=== PATIENT | female | born 1940 | race Caucasian/White ===

== ENCOUNTER → 2018-04-17 09:41 | Outpatient (CLI) | payer MEDICARE, OTHER, SELFPAY ==
[2018-04-17 11:15] LABS: BUN Creatinine Ratio 37.5 (6-22); Blood Urea Nitrogen 30 mg/dL (7-17); Carbon Dioxide 27 mmol/L (22-32); Chloride 103 mmol/L (98-107); Estimated Glomerular Filt Rate > 60.0 mL/min (>60); Glucose 82 mg/dL (80-110); HEMOLYSIS < 15 (0-50); Potassium 4.6 mmol/L (3.4-5.1); Sodium 141 mmol/L (137-145)
== END ==
PROVIDERS: PCP Physician Assistant; Visit Provider Internal Medicine Cardiovascular Disease
DX: I10 Essential (primary) hypertension (principal)
CPT/HCPCS: 36415; 80048

== ENCOUNTER → 2018-04-24 13:24 | Outpatient (CLI) | payer MEDICARE, OTHER, SELFPAY ==
--- NOTE | 2018-04-24 | DI.ECHO.S_ITS ---
[facility]---------+ [facility] +---------+ : : [address] : [address] : : : : [id number] : : : : Phone: [phone]---------+ Echocardiogram Report + + :Name: NATAN LINARES Study Date: 04/24/2018 Height: 66 in : :[facility] Weight: 200 lb : : Gender: Female BSA: 2.0 m2 : :: 1940 Age: 77 yrs BP: 148/66 mmHg: :Reason For Study: Aortic valve regurgitation : :Ordering Physician: Hardeep : :Pedro Performed By: Nimco Peres : :Referring: JESSICA Cantu : + + Interpretation Summary The left ventricle is normal in size. The ejection fraction is estimated to be 60-65%. The right ventricle is borderline dilated. The right ventricular systolic function is normal. There is moderate aortic regurgitation. Compared to the prior echo study, there has been an slight increase in the severity of aortic regurgitation. There is mild to moderate tricuspid regurgitation. Compared to the prior echo exam, there has been no change in TR severity. The right ventricular systolic pressure is estimated at 27 mmHg assuming a right atrial pressure of 3 mm Hg. The ascending aorta is moderately enlarged (4.3 cm in diameter. In 12/2013 it was 3.9 cm). Procedure: A two-dimensional transthoracic echocardiogram with color flow and Doppler was performed. The study quality was technically adequate. Comparison is made with the echocardiogram of 12-28-13. The patient was in normal sinus rhythm during the exam. Left Ventricle: The left ventricle is normal in size. Proximal septal thickening is noted. There is no echo evidence for significant left ventricular outflow tract obstruction. There is no thrombus. The ejection fraction is estimated to be 60-65%. There has been no significant change since the previous study. There are no focal wall motion abnormalities. Assessment of diastolic parameters indicates a relaxation abnormality of the left ventricle, consistent with normal filling pressures. Right Ventricle: The right ventricle is borderline dilated. The right ventricular systolic function is normal. Atria: The left atrium is mildly dilated. The left atrium has mildly increased in size since the prior echo exam. Right atrial size is normal. The interatrial septum is intact with no evidence for an atrial septal defect. Mitral Valve: There is mild mitral annular calcification. There is mild mitral regurgitation. Aortic Valve: The aortic valve is trileaflet. The aortic valve is slightly calcified. There is no aortic valve stenosis. There is moderate aortic regurgitation. Compared to the prior echo study, there has been an increase in the severity of aortic regurgitation. Tricuspid Valve: The tricuspid valve leaflets are thin and pliable. There is mild to moderate tricuspid regurgitation. The right ventricular systolic pressure is estimated at 27 mmHg assuming a right atrial pressure of 3 mm Hg. Compared to the prior echo exam, there has been no change in TR severity. Compared to the prior echo exam, there has been no change in the severity of pulmonary hypertension. Pulmonic Valve: The pulmonic valve is not well seen, but is grossly normal. There is trace pulmonic regurgitation. Great Vessels: The aortic root is normal size. The ascending aorta is moderately enlarged. The aortic arch is mildly enlarged. Inspiratory collapse cannot be assessed because of mechanical ventilation, thus CVP cannot be estimated.. Pericardium/ Pleura There is no pericardial effusion. There is no pleural effusion. MMode/2D Measurements & Calculations LVIDd: 5.1 cm Ao root diam: 3.6 cm LVIDs: 3.1 cm Aortic Jxn: 2.8 cm FS: 39.0 % asc Aorta Diam: 4.3 cm IVSd: 1.1 cm Ao Arch Diam (Prox Trans): 3.5 cm LVPWd: 0.85 cm LV ansari. diameter/BSA (cm/m^2): 2.6 LV sys. diameter/BSA (cm/m^2): 1.6 LA dimension: 4.1 cm RA long axis: 4.5 cm LA A2 area: 22.3 cm2 RA area: 13.4 cm2 LA A4 area: 19.5 cm2 RA vol: 34.1 ml LA length (vol): 5.3 cm RA : 17.1 ml/m2 LA vol: 70.2 ml IVC diam: 1.3 cm LA vol index: 35.1 ml/m2 RVDd major: 5.4 cm RVD1 (basal): 3.1 cm RVD2 (mid): 2.8 cm Doppler Measurements & Calculations Ao V2 max: 199.4 cm/sec AI P1/2t: 465.0 msec Ao V2 mean: 120.8 cm/sec AI dec slope: 319.5 cm/sec2 Ao max P.9 mmHg Ao mean P.1 mmHg Ao V2 VTI: 35.5 cm MV E max nikolai: 74.1 cm/sec TR max nikolai: 245.2 cm/sec MV A max nikolai: 116.4 cm/sec TR max P.1 mmHg MV E/A: 0.64 PA V2 max: 112.0 cm/sec Med Peak E' Nikolai: 5.6 cm/sec PA V2 mean: 71.8 cm/sec E/E' med: 13.3 PA mean P.4 mmHg Lat Peak E' Nikolai: 5.1 cm/sec PA Accel Time: 0.13 sec E/E' lat: 14.7 E/e' average: 14.0 MV dec time: 0.28 sec MV P1/2t: 82.3 msec MV P1/2t max nikolai: 73.7 cm/sec MVA(P1/2t): 2.7 cm2 Reading Physician:BOSTON
== END ==
PROVIDERS: Family Provider Physician Assistant; PCP Physician Assistant; Visit Provider Internal Medicine Cardiovascular Disease
DX: I35.1 Nonrheumatic aortic (valve) insufficiency (principal)
CPT/HCPCS: 93306

== ENCOUNTER → 2018-09-26 13:44 | Outpatient (CLI) | payer MEDICARE, OTHER, SELFPAY ==
[2018-09-26 14:22] LABS: Creatine Kinase 20 U/L (30-135)
[2018-09-26 14:34] LABS: Troponin I < 0.012 ng/mL (0.01-0.034)
== END ==
PROVIDERS: Family Provider Physician Assistant; PCP Physician Assistant; Visit Provider Physician Assistant
DX: R07.89 Other chest pain (principal)
CPT/HCPCS: 82550; 84484

== ENCOUNTER → 2019-06-13 12:14 | Outpatient (CLI) | payer MEDICARE, OTHER, SELFPAY ==
--- NOTE | 2019-06-13 | DI.MG.S_ITS ---
BILATERAL DIGITAL SCREENING MAMMOGRAM 3D/2D WITH CAD: 06/13/2019 CLINICAL: Routine screening. Comparison is made to exams dated: 01/05/2018 mammogram, 08/26/2015 mammogram, and 09/05/2014 mammogram - [facility]. The tissue of both breasts is heterogeneously dense. This may lower the sensitivity of mammography. Current study was also evaluated with a Computer Aided Detection (CAD) system. No significant masses, calcifications, or other findings are seen in either breast. There has been no significant interval change. IMPRESSION: NEGATIVE There is no mammographic evidence of malignancy. A 1 year screening mammogram is recommended. This exam was interpreted at Station ID: [id number]. NOTE: For mammograms, a report in lay terms will be sent to the patient. Approximately 15% of breast malignancies will not be visualized mammographically. In the management of a palpable breast mass, a negative mammogram must not discourage biopsy of a clinically suspicious lesion. Electronically Signed By: Bruce morris/bre:06/13/2019 15:23:28 letter sent: Normal Exam ACR BI-RADS Category 1: Negative [id number]
--- NOTE | 2019-06-13 | DI.ECHO.S_ITS ---
[facility]---------+ [facility] +---------+ : : [address] : : : : [id number] : : : : Phone: [phone] : [phone] +---------+ Echocardiogram Report + + :Name: NATAN LINARES Study Date: 06/13/2019 Height: 66 in : :[facility] Exam Location: [facility] Weight: 200 lb : : Gender: Female BSA: 2.0 m2 : :: 1940 Age: 78 yrs BP: 160/86 mmHg: :Reason For Study: AI : : Performed By: Price Palacio : :Referring: AZRA ONEIL : + + Interpretation Summary The left ventricle is normal in size. Left ventricular systolic function is normal without focal wall motion abnormalities. The ejection fraction is estimated to be 60-65%. Diastolic parameters suggest a relaxation abnormality of the left ventricle, consistent with probable normal filling pressures. The right ventricle is normal in size and function. The right ventricular systolic pressure is estimated to be at least 24 mmHg based on an estimated right atrial pressure of 3 mm Hg. Both atria are normal in size. There is mild mitral regurgitation. There is mild to moderate aortic regurgitation. Compared to the prior echo study, there has been a decrease in the severity of aortic regurgitation. There is no other significant valvular heart disease. The ascending aorta is moderately enlarged. This is unchanged compared to the previous study. Mild atherosclerotic plaque(s) in the descending aorta. Procedure: A two-dimensional transthoracic echocardiogram with color flow and Doppler was performed. The study quality was technically adequate. Comparison is made with the echocardiogram of 04/24/18. The patient was in normal sinus rhythm during the exam. Left Ventricle: The left ventricle is normal in size. There is normal left ventricular wall thickness. Left ventricular systolic function is normal without focal wall motion abnormalities. The ejection fraction is estimated to be 60-65%. Diastolic parameters suggest a relaxation abnormality of the left ventricle, consistent with probable normal filling pressures. Right Ventricle: The right ventricle is normal in size and function. Atria: Both atria are normal in size. The interatrial septum is intact with no evidence for an atrial septal defect. Mitral Valve: The mitral valve is normal in structure and function. There is mild mitral regurgitation. Aortic Valve: The aortic valve is trileaflet. The aortic valve opens well. There is mild to moderate aortic regurgitation. Compared to the prior echo study, there has been a decrease in the severity of aortic regurgitation. Tricuspid Valve: The tricuspid valve is normal in structure and function. There is trace tricuspid regurgitation. The right ventricular systolic pressure is estimated to be at least 24 mmHg based on an estimated right atrial pressure of 3 mm Hg. Pulmonic Valve: The pulmonic valve is not well seen, but is grossly normal. There is trace pulmonic regurgitation. There is no other significant valvular heart disease. Great Vessels: The aortic root is normal size. The ascending aorta is moderately enlarged. This is unchanged compared to the previous study. Mild atherosclerotic plaque(s) in the descending aorta. The pulmonary artery is normal size. The IVC is of normal diameter and collapses greater than 50% with a sniff. This suggests a low right atrial pressure of 3 mm Hg. Pericardium/ Pleura There is no pericardial effusion. There is no pleural effusion. MMode/2D Measurements & Calculations LVIDd: 4.8 cm LVOT diam: 2.4 cm LVIDs: 3.5 cm Ao root diam: 3.4 cm FS: 27.0 % Aortic Jxn: 2.6 cm EPSS: 0.74 cm asc Aorta Diam: 4.3 cm IVSd: 1.2 cm Ao Arch Diam (Prox Trans): 2.7 cm LVPWd: 0.94 cm LV ansari. diameter/BSA (cm/m^2): 2.4 LV sys. diameter/BSA (cm/m^2): 1.7 LA dimension: 3.9 cm RA long axis: 4.3 cm LA A2 area: 20.8 cm2 RA area: 13.5 cm2 LA A4 area: 15.5 cm2 RA vol: 36.4 ml LA length (vol): 4.7 cm RA : 18.2 ml/m2 LA vol: 58.5 ml IVC diam: 1.6 cm LA vol index: 29.2 ml/m2 Doppler Measurements & Calculations Ao V2 max: 170.9 cm/sec LVOT Max Nikolai: 133.3 cm/sec Ao V2 mean: 117.5 cm/sec LV V1 max P.1 mmHg Ao max P.7 mmHg LV V1 VTI: 27.5 cm Ao mean P.1 mmHg NELLY(I,D): 4.2 cm2 Ao V2 VTI: 29.3 cm NELLY(V,D): 3.5 cm2 sev ratio: 0.94 NELLY indexed to BSA (cm^2/m^2): 2.1 AI P1/2t: 454.3 msec AI dec slope: 312.9 cm/sec2 MV E max nikolai: 61.6 cm/sec TR max nikolai: 230.4 cm/sec MV A max nikolai: 108.3 cm/sec TR max P.2 mmHg MV E/A: 0.57 PA V2 max: 85.8 cm/sec Med Peak E' Nikolai: 3.1 cm/sec PA V2 mean: 64.7 cm/sec E/E' med: 19.9 PA mean P.8 mmHg Lat Peak E' Nikolai: 2.7 cm/sec PA pr(Accel): 44.1 mmHg E/E' lat: 23.0 PA Accel Time: 0.09 sec E/e' average: 21.4 MV dec time: 0.18 sec SV(LVOT): 123.2 ml Reading Physician:04:53 PM
== END ==
PROVIDERS: PCP Physician Assistant; Visit Provider Physician Assistant
DX: Z12.31 Encounter for screening mammogram for malignant neoplasm of breast (principal); I35.1 Nonrheumatic aortic (valve) insufficiency
CPT/HCPCS: 77063; 77067; 93306

== ENCOUNTER → 2019-06-19 11:12 | Outpatient (CLI) | payer MEDICARE, OTHER, SELFPAY ==
[2019-06-19 12:45] LABS: Alanine Aminotransferase 16 IU/L (9-52); Albumin 4.3 g/dL (3.5-5.0); Albumin Globulin Ratio 1.7 (1.0-2.8); Alkaline Phosphatase 55 U/L (38-126); Aspartate Aminotransferase 19 IU/L (14-36); BUN Creatinine Ratio 34.3 (6-22); Bilirubin Total 0.8 mg/dL (0.2-1.3); Blood Urea Nitrogen 24 mg/dL (7-17); Calcium 10.2 mg/dL (8.4-10.2); Carbon Dioxide 28 mmol/L (22-32); Chloride 101 mmol/L (98-107); Cholesterol 164 mg/dL (140-199); Estimated Glomerular Filt Rate > 60.0 mL/min (>60); Globulin 2.6 g/dL (1.7-4.1); Glucose 100 mg/dL (80-110); HDL Cholesterol 85 mg/dL (40-60); HEMOLYSIS 17 (0-50); LDL Cholesterol Calculated 61 mg/dL (<100); Potassium 4.3 mmol/L (3.4-5.1); Sodium 141 mmol/L (137-145); Total Protein 6.9 g/dL (6.3-8.2); Triglycerides 92 mg/dL (35-150)
[2019-06-19 14:45] LABS: Creatinine Urine Random 162.1 mg/dL
[2019-06-19 14:52] LABS: Microalbumi Creatinin Ratio Ur 8.6 ug/mg CR (<30); Microalbumin Urine Random 1.4 mg/dL (0-1.6)
== END ==
PROVIDERS: PCP Physician Assistant; Visit Provider Physician Assistant
DX: E78.5 Hyperlipidemia, unspecified (principal); I10 Essential (primary) hypertension
CPT/HCPCS: 36415; 80053; 80061; 82043; 82570

== ENCOUNTER → 2020-02-28 13:48 | Outpatient (CLI) | payer MEDICARE, OTHER, SELFPAY ==
--- NOTE | 2020-02-28 | DI.ECHO.S_ITS ---
[facility]---------+ [facility] +---------+ : : [address] : : : : [id number] : : : : Phone: [phone] : : [phone] +---------+ Echocardiogram Report + + :Name: NATAN LINARES Study Date: 02/28/2020 Height: 66 in : :[facility] Weight: 197 lb : : Gender: Female BSA: 2.0 m2 : :: 1940 Age: 79 yrs BP: 130/72 mmHg: :Reason For Study: AORTIC INSUFFICIENCY : :Ordering Physician: Christian : :Vinh Stewart Performed By: June Stallworth : :Referring: CHRISTIAN STEWART : + + Interpretation Summary The left ventricle is normal in size and wall thickness. Left ventricular systolic function is normal without focal wall motion abnormalities. The ejection fraction is estimated to be 55-60%. There has been no significant change since the previous exam. Diastolic parameters suggest a relaxation abnormality of the left ventricle, consistent with probable normal filling pressures. The right ventricle is normal in size and function. The right ventricular systolic pressure is estimated to be at least 23 mmHg based on an estimated right atrial pressure of 3 mm Hg. Both atria are normal in size. There is mild to moderate aortic regurgitation. This is unchanged compared to the previous study. There is no other significant valvular heart disease. The ascending aorta is mildly enlarged. Procedure: A two-dimensional transthoracic echocardiogram with color flow and Doppler was performed. The study quality was technically adequate. Comparison is made with the echocardiogram of 06/13/2019. The patient was in normal sinus rhythm during the exam. Left Ventricle: The left ventricle is normal in size and wall thickness. Left ventricular systolic function is normal without focal wall motion abnormalities. The ejection fraction is estimated to be 55-60%. There has been no significant change since the previous exam. Diastolic parameters suggest a relaxation abnormality of the left ventricle, consistent with probable normal filling pressures. Right Ventricle: The right ventricle is normal in size and function. Atria: Both atria are normal in size. There is no Doppler evidence for an interatrial shunt. Mitral Valve: The mitral valve is normal in structure and function. There is mild mitral regurgitation. Aortic Valve: The aortic valve is trileaflet. There is no aortic valve stenosis. There is mild to moderate aortic regurgitation. This is unchanged compared to the previous study. Tricuspid Valve: The tricuspid valve is normal in structure and function. There is mild tricuspid regurgitation. The right ventricular systolic pressure is estimated to be at least 23 mmHg based on an estimated right atrial pressure of 3 mm Hg. Pulmonic Valve: The pulmonic valve is not well seen, but is grossly normal. There is trace pulmonic regurgitation. There is no other significant valvular heart disease. Great Vessels: The aortic root is normal size. The ascending aorta is mildly enlarged. The IVC is of normal diameter and collapses greater than 50% with a sniff. This suggests a low right atrial pressure of 3 mm Hg. Pericardium/ Pleura There is no pericardial effusion. There is no pleural effusion. MMode/2D Measurements & Calculations LVIDd: 4.5 cm LVOT diam: 2.2 cm LVIDs: 3.2 cm Ao root diam: 3.0 cm FS: 29.0 % asc Aorta Diam: 4.1 cm EPSS: 0.68 cm Ao Arch Diam (Prox Trans): 2.8 cm IVSd: 0.96 cm LVPWd: 1.0 cm LV ansari. diameter/BSA (cm/m^2): 2.3 LV sys. diameter/BSA (cm/m^2): 1.6 LA A2 area: 20.3 cm2 RA long axis: 4.4 cm LA A4 area: 12.3 cm2 RA area: 11.9 cm2 LA length (vol): 4.3 cm RA vol: 27.7 ml LA vol: 49.3 ml RA : 13.9 ml/m2 LA vol index: 24.8 ml/m2 IVC diam: 1.2 cm RVD1 (basal): 3.0 cm TAPSE: 2.0 cm Doppler Measurements & Calculations Ao V2 max: 156.1 cm/sec LVOT Max Nikolai: 148.9 cm/sec Ao V2 mean: 101.8 cm/sec LV V1 max P.9 mmHg Ao max P.7 mmHg LV V1 VTI: 28.6 cm Ao mean P.8 mmHg NELLY(I,D): 3.8 cm2 Ao V2 VTI: 29.2 cm NELLY(V,D): 3.7 cm2 sev ratio: 0.98 NELLY indexed to BSA (cm^2/m^2): 1.9 AI P1/2t: 500.7 msec AI dec slope: 258.6 cm/sec2 MV E max nikolai: 80.2 cm/sec TR max nikolai: 225.5 cm/sec MV A max nikolai: 129.2 cm/sec TR max P.4 mmHg MV E/A: 0.62 PA V2 max: 115.7 cm/sec Med Peak E' Nikolai: 4.0 cm/sec PA V2 mean: 77.0 cm/sec E/E' med: 20.0 PA mean P.7 mmHg Lat Peak E' Nikolai: 7.3 cm/sec E/E' lat: 11.0 E/e' average: 15.5 MV dec time: 0.38 sec SV(LVOT): 110.1 ml Reading Physician:01:14 PM
== END ==
PROVIDERS: PCP Physician Assistant; Referring Provider Internal Medicine Cardiovascular Disease; Visit Provider Internal Medicine Cardiovascular Disease
DX: I08.3 Combined rheumatic disorders of mitral, aortic and tricuspid valves (principal); I77.89 Other specified disorders of arteries and arterioles
CPT/HCPCS: 93306

== ENCOUNTER → 2020-09-29 09:49 | Outpatient (CLI) | payer MEDICARE, OTHER, SELFPAY | PROVIDERS: PCP Registered Nurse Diabetes Educator; Referring Provider Registered Nurse Diabetes Educator; Visit Provider Registered Nurse | DX: M85.851 Other specified disorders of bone density and structure, right thigh (principal); Z78.0 Asymptomatic menopausal state | CPT/HCPCS: 77080 ==

== ENCOUNTER → 2020-12-08 09:07 | Outpatient (CLI) | payer MEDICARE, OTHER, SELFPAY ==
[2020-12-08 10:12] LABS: Alanine Aminotransferase 18 IU/L (<35); Albumin 4.1 g/dL (3.5-5.0); Albumin Globulin Ratio 1.7 (1.0-2.8); Alkaline Phosphatase 45 U/L (38-126); Aspartate Aminotransferase 23 IU/L (14-36); BUN Creatinine Ratio 33.7 (6-22); Bilirubin Total 0.6 mg/dL (0.2-1.3); Blood Urea Nitrogen 29 mg/dL (7-17); Calcium 9.4 mg/dL (8.4-10.2); Carbon Dioxide 30 mmol/L (22-32); Chloride 103 mmol/L (98-107); Cholesterol 139 mg/dL (140-199); Estimated Glomerular Filt Rate > 60.0 mL/min (>60); Globulin 2.4 g/dL (1.7-4.1); Glucose 69 mg/dL (80-110); HDL Cholesterol 71 mg/dL (40-60); HEMOLYSIS < 15 (0-50); LDL Cholesterol Calculated 54 mg/dL (<100); Potassium 3.5 mmol/L (3.4-5.1); Sodium 137 mmol/L (137-145); Total Protein 6.5 g/dL (6.3-8.2); Triglycerides 72 mg/dL (35-150)
== END ==
PROVIDERS: PCP Registered Nurse Diabetes Educator; Referring Provider Registered Nurse; Visit Provider Registered Nurse
DX: E78.5 Hyperlipidemia, unspecified (principal); I10 Essential (primary) hypertension
CPT/HCPCS: 36415; 80053; 80061

== ENCOUNTER → 2020-12-22 09:50 | Outpatient (CLI) | payer MEDICARE, OTHER, SELFPAY ==
--- NOTE | 2020-12-22 09:55 | DI.MG.S_ITS ---
BILATERAL DIGITAL SCREENING MAMMOGRAM 3D/2D WITH CAD: 12/22/2020 CLINICAL: Routine screening. Comparison is made to exams dated: 06/13/2019 mammogram, 01/05/2018 mammogram, and 08/26/2015 mammogram - [facility]. The tissue of both breasts is heterogeneously dense. This may lower the sensitivity of mammography. Current study was also evaluated with a Computer Aided Detection (CAD) system. There is a biopsy clip in the right breast. No significant masses, calcifications, or other findings are seen in either breast. There has been no significant interval change. IMPRESSION: NEGATIVE There is no mammographic evidence of malignancy. A 1 year screening mammogram is recommended. This exam was interpreted at Station ID: [id number]. NOTE: For mammograms, a report in lay terms will be sent to the patient. Approximately 15% of breast malignancies will not be visualized mammographically. In the management of a palpable breast mass, a negative mammogram must not discourage biopsy of a clinically suspicious lesion. Electronically Signed By: Mathew black/bre:12/22/2020 10:25:44 letter sent: Normal Exam ACR BI-RADS Category 1: Negative 3341F
== END ==
PROVIDERS: PCP Registered Nurse Diabetes Educator; Referring Provider Registered Nurse; Visit Provider Registered Nurse
DX: Z12.31 Encounter for screening mammogram for malignant neoplasm of breast (principal)
CPT/HCPCS: 77063; 77067

== ENCOUNTER → 2020-12-29 10:33 | Outpatient (CLI) | payer MEDICARE, OTHER, SELFPAY ==
--- NOTE | 2020-12-29 10:35 | DI.RAD.S_ITS ---
PROCEDURE: XR LUMBAR SPINE MIN 4V INDICATIONS: lower back pain TECHNIQUE: 4 views of the lumbar spine were acquired, including bilateral oblique views. COMPARISON: None. FINDINGS: Bones: L1 vertebral body compression fracture with moderate height loss. Multilevel degenerative endplate sclerosis and spurring. Diffuse facet arthropathy. Diffuse mild to moderate disc space narrowing throughout the lumbar spine. Mild dextrocurvature centered at the L1 level. Degenerative spurring and sclerosis at the sacroiliac joints. Soft tissues: Overlying bowel gas pattern is normal. Large left-sided pelvic calcification. No suspicious soft tissue calcifications. Oblique images: No pars defects. IMPRESSION: Diffuse lumbar spondylosis and facet arthropathy as above Mild dextrocurvature L1 compression fracture, technically age unknown, recommend clinical correlation to point tenderness to determine acuity. Dictated by: Mesfin Aldrich M.D. on 12/29/2020 at 15:50 Approved by: Mesfin Aldrich M.D. on 12/29/2020 at 15:52
== END ==
PROVIDERS: PCP Registered Nurse; Referring Provider Registered Nurse; Visit Provider Registered Nurse
DX: M54.5 Low back pain (principal); M47.816 Spondylosis without myelopathy or radiculopathy, lumbar region; M48.56XA Collapsed vertebra, not elsewhere classified, lumbar region, initial encounter for fracture
CPT/HCPCS: 72110

== ENCOUNTER 2021-01-21 18:26 | Emergency (ER) | payer MEDICARE, OTHER, SELFPAY ==
[2021-01-21 18:30] VITALS: BP 171/79; PULSE 64; RESP 15; TEMP 36.1; O2SAT 99; BMI 27.2
--- NOTE | 2021-01-21 18:35 | DI.RAD.S_ITS ---
PROCEDURE: XR SHOULDER RT MIN 2V INDICATIONS: fall with right shoulder pain TECHNIQUE: To views of the shoulder were acquired. COMPARISON: None. FINDINGS: Bones: Displaced right humeral neck fracture. Soft tissues: No suspicious soft tissue calcifications. IMPRESSION: Proximal right humerus fracture. Dictated by: Jade Irving MD, PhD on 01/21/2021 at 19:03 Approved by: Jade Irving MD, PhD on 01/21/2021 at 19:04
--- NOTE | 2021-01-21 20:06 | ED.UPPEXIN ---
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 She said that behind her recliner is were she keeps her walker she got up to get her walker she reached with her left hand to turn off the light when she fell landing on her right shoulder. She did not hit her head or lose consciousness she is not on anti-platelet or anticoagulation medication. She denies any new numbness tingling or weakness. He has obvious right shoulder pain. EMS apparently was called to the house and she was placed in a sling and brought by POV. MD complaint: injury to: right and shoulder Onset (ago): hour(s) Related Data Home Medications Medication Instructions Recorded Confirmed FOLIC ACID/VIT A/VIT B1/VIT 1 tab PO Q DAY #0 04/14/11 12/29/20 (#MULTIVITAMIN) [CO-Q-10] 1 cap PO QDAY #0 03/01/13 12/29/20 [GLUCOSAMINE/CHONDROI] 1 cap PO QDAY #0 03/01/13 12/29/20 [FISH OIL] 1 cap PO QDAY #0 01/24/17 12/29/20 [MAGNESIUM] 1 tab PO QDAY #0 01/24/17 12/29/20 Potassium See Rx Instructions .ROUTE .COMPLEX 06/06/18 12/29/20 Respironics Dreamstation CPAP #1 ea 05/29/19 12/29/20 advancin PO 06/09/20 12/29/20 ascorbic acid (vitamin C) 1,000 mg 1 gram PO DAILY tab 06/09/20 12/29/20 tablet cholecalciferol (vitamin D3) 50 50 mcg PO DAILY 06/09/20 12/29/20 mcg (2,000 unit) capsule niacin 500 mg capsule,extended 500 mg PO DAILY 06/09/20 12/29/20 release tumeric PO 06/09/20 12/29/20 Previous Rx's Medication Instructions Recorded Disabled Parking Placard #1 ea 02/07/19 atorvastatin 40 mg tablet 40 mg PO HS #90 tab 03/21/20 famotidine 20 mg tablet 20 mg PO BID PRN #180 tab 06/09/20 hydrochlorothiazide 25 mg tablet 25 mg PO QDAY #90 tab 06/09/20 verapamil 80 mg tablet 160 mg PO BID #360 tab 06/09/20 sulindac 200 mg tablet See Rx Instructions .ROUTE 12/19/20 .COMPLEX #180 tablet hydrocodone-acetaminophen 1 tab PO Q6H PRN #10 tab 01/21/21 Allergies Allergy/AdvReac Type Severity Reaction Status Date / Time No Known Drug Allergies Allergy Verified 01/21/21 18:32 Review of Systems Review of Systems ROS Unobtainable: All systems reviewed & are unremarkable except as noted in HPI and below Constitutional Constitutional: Denies fatigue, Denies fever(s), Denies frequent falls and Denies headache(s) ENT Ears, Nose, Mouth, and Throat: Denies dizziness and Denies headache(s) Cardiovascular Cardiovascular: Denies chest pain, Denies syncope, Denies irregular heart rhythm, Denies lightheadedness, Denies palpitations, Denies dyspnea and Denies dyspnea on exertion Respiratory Respiratory: Denies cough, Denies dyspnea, Denies dyspnea on exertion and Denies wheezing Gastrointestinal Gastrointestinal: Denies abdominal pain, Denies nausea and Denies vomiting Musculoskeletal Musculoskeletal: Reports as per HPI Integumentary/Breasts Skin/Breast: Denies pruritus, Denies erythema, Denies rash and Denies wounds Neurologic Neurologic: Denies dizziness, Denies syncope, Denies frequent falls and Denies headache(s) Endocrine Endocrine: Denies fatigue and Denies palpitations Allergic/Immunologic Allergic/Immunologic: Denies wheezing Patient History Medical History (Updated 01/21/21 @ 20:29 by Vi Cevallos DO) Aortic regurgitation Brain bleed (~2001) Hyperlipemia Hypertension Rheumatic fever Sleep apnea Stroke Surgical History History of carpal tunnel repair History of tonsillectomy Hx of brain surgery (~2002) Status post breast biopsy Family History Father No problems noted. Mother No problems noted. Grandmother No problems noted. Grandfather No problems noted. Social History Smoking Status: Never smoker second hand exposure: No alcohol intake: current substance use type: does not use Smoking Status: Never smoker alcohol intake frequency: holidays/special occasions only Substance Use Type: does not use Exam Initial Vital Signs Initial Vital Signs: Vital Signs Temperature 97.0 F L 01/21/21 18:30 Pulse Rate 64 01/21/21 18:30 Respiratory Rate 15 01/21/21 18:30 Blood Pressure 171/79 H 01/21/21 18:30 Pulse Oximetry 99 01/21/21 18:30 GENERAL: Alert very pleasant 80-year-old female and in no acute distress. HEENT: Head atraumatic, no depression or crepitation EOMI, pupils reactive, face symmetric, neck is supple no vertebral tenderness or step-offs CARDIOVASCULAR: Regular rate and rhythm without murmurs, rubs or gallops. RESPIRATORY: Breath sounds equal bilaterally, no wheezes rales or rhonchi. ABDOMEN: Soft, nontender. Normoactive bowel sounds all 4 quadrants. No guarding or rebound. EXTREMITIES: Normal range of motion, no clubbing or edema. Neurovascularly intact. Right shoulder pain sensation over deltoid intact distal radial pulse intact NEUROLOGICAL: Alert and oriented x4.Normal gait and speech. SKIN: Warm, dry, no laceration, no petechiae, no rashes or lesions. Course Orders Ordered: ED Orders 01/21/21 18:35 XR shoulder RT min 2V Stat Discontinued Medications Hydrocodone Bitart/Acetaminophen (Hydrocodone/Acet 5/325 Tablet) 1 tab PO NOW ONE Stop: 01/21/21 20:21 Last Admin: 01/21/21 20:23 Dose: 1 tab Documented by: SAMMI Hydrocodone Bitart/Acetaminophen (Hydrocodone/Acet 5/325 Prepack) 1 bottle MISC SEEINSTR ONE Stop: 01/21/21 20:33 Last Admin: 01/21/21 20:42 Dose: 1 bottle Documented by: SAMMI Vital Signs Vital signs: Vital Signs - 8 hr 01/21/21 18:30 01/21/21 21:15 Temperature 97.0 F L Pulse Rate 64 71 Respiratory Rate 15 22 Blood Pressure 171/79 H 175/84 H Pulse Oximetry 99 96 MDM - Extremity Injury (Upper) Imaging Data Extremity x-ray #1: Radiologist's Impression: PROCEDURE: XR SHOULDER RT MIN 2V INDICATIONS: fall with right shoulder pain TECHNIQUE: To views of the shoulder were acquired. COMPARISON: None. FINDINGS: Bones: Displaced right humeral neck fracture. Soft tissues: No suspicious soft tissue calcifications. IMPRESSION: Proximal right humerus fracture. Dictated by: Jade Irving MD, PhD on 01/21/2021 at 19:03 MDM Narrative Medical decision making narrative: At this time patient has fairly good memory of what happened. No head injury. She has obvious right humeral fracture she is placed in a sling. Discharge Plan Departure Patient Disposition: Home Clinical Impression: Closed right humeral fracture Qualifiers: Encounter type: initial encounter Humerus Location: proximal Fracture alignment: displaced Instructions: DI for Shoulder Fracture Activity Restrictions/Additional Instructions: *You have been diagnosed with right shoulder fracture *What to do: Wear sling on right arm at all times including to sleep and possibly to shower as well. (to slings may be useful so that when 1 is wet you can put on a dry one) *Continue to take medications as directed--> SENT TO [facility] Tylenol 650 mg every 4-6 hours if needed for [id number] pain-recommend trying to take this during the daytime [place] 0.5-1 tablet every 6 hours if needed for moderate to severe pain-try to take this at night while sleeping however you may need some of this over the next couple of days during the daytime *Follow up with your primary care provider in 2-3 days Call orthopedics tomorrow to schedule follow-up appointment to ensure proper healing *Return to ER if you should have increasing pain, weakness or any new, worsening or concerning symptoms CONTROLLED SUBSTANCE DISCHARGE (Narcotoic/benzodiazepine/Flexeril/Phenergan) 1. You have been prescribed narcotic medications, it does have acetaminophen/Tylenol/paracetamol in it, DO NOT TAKE MORE THAN 4,00mg in 24 hours of Tylenol. TRAMADOL DOES NOT CONTAIN TYLENOL 2. Please understand that we cannot provide further refills of narcotics, benzodiazepines or controlled substances through the ED and her pain management will need to be through your provider. 3. While on these medications you cannot drive or operate heavy machinery. 4. You cannot sign legal documents or perform any duties such as this. 5. As long as you're taking opiate pain medications he should also be taking a stool softener such as Colace, Dulcolax, MiraLAX or prune juice, to help avoid constipation. Prescriptions: New hydrocodone-acetaminophen 5-325 mg tablet 1 tab PO Q6H PRN (Reason: pain) Qty: 10 RF: 0 No Action Potassium See Rx Instructions .ROUTE .COMPLEX RF: 0 FOLIC ACID/VIT A/VIT B1/VIT (#MULTIVITAMIN) 1 tab PO Q DAY Qty: 0 RF: 0 [CO-Q-10] 1 cap PO QDAY Qty: 0 RF: 0 [GLUCOSAMINE/CHONDROI] 1 cap PO QDAY Qty: 0 RF: 0 [MAGNESIUM] 1 tab PO QDAY Qty: 0 RF: 0 [FISH OIL] 1 cap PO QDAY Qty: 0 RF: 0 (DME) Disabled Parking Placard Qty: 1 RF: 0 (DME) Respironics Dreamstation CPAP Qty: 1 RF: 0 atorvastatin 40 mg tablet 40 mg PO HS Qty: 90 RF: 3 sulindac 200 mg tablet See Rx Instructions .ROUTE .COMPLEX Qty: 180 RF: 1 tumeric 1,000 mg PO RF: 0 advancin PO RF: 0 cholecalciferol (vitamin D3) [Vitamin D3] 50 mcg (2,000 unit) capsule 50 mcg PO DAILY RF: 0 niacin 500 mg capsule, extended release 500 mg PO DAILY RF: 0 ascorbic acid (vitamin C) 1,000 mg tablet 1 gram PO DAILY RF: 0 hydrochlorothiazide 25 mg tablet 25 mg PO QDAY Qty: 90 RF: 3 verapamil 80 mg tablet 160 mg PO BID Qty: 360 RF: 3 famotidine 20 mg tablet 20 mg PO BID PRN (Reason: reflux) Qty: 180 RF: 3 Referrals: [facility] [Provider Group] Joselyn Watkins ARNP [Primary Care Provider] -
[2021-01-21] MEDS: HYDROCODONE/ACET 5/325 TABLET 1 TAB PO (20:23)
[2021-01-21] MEDS: HYDROCODONE/ACET 5/325 PREPACK 1 BOTTLE MISC (20:42)
[2021-01-21 21:15] VITALS: BP 175/84; PULSE 71; RESP 22; O2SAT 96
== END 2021-01-21 21:10 | disposition home or self-care (01) ==
PROVIDERS: Emergency Provider Emergency Medicine; PCP Registered Nurse
DX: S42.291A Other displaced fracture of upper end of right humerus, initial encounter for closed fracture (principal); W18.30XA Fall on same level, unspecified, initial encounter
CPT/HCPCS: 73030; 99283

== ENCOUNTER → 2021-01-26 14:33 | Outpatient (CLI) | payer MEDICARE, OTHER, SELFPAY ==
--- NOTE | 2021-01-26 | DI.CT.S_ITS ---
PROCEDURE: CT UE RT WO CON INDICATIONS: Unspecified fracture of upper end of right humerus TECHNIQUE: Noncontrast 1-1.5 mm thick sections acquired from the acromioclavicular joint to the inferior scapula, with coronal and sagittal reformatting. COMPARISON: None. FINDINGS: Image quality: Excellent. Bones: Comminuted and impacted fracture involving surgical neck of proximal humerus is seen with anterior and superior migration of proximal humeral shaft in relation to humeral head with up to 1.5 centimeter overlapping at fracture site. Fracture line is seen extending to involve both greater and lesser tuberosities with medially displaced lesser tuberosity fragments and posterior laterally displaced greater tuberosity fragments. Minimally displaced distal clavicular shaft fracture approximately 1.3 centimeters from acromioclavicular joint is also seen with up to 4 millimeter superior displacement of distal clavicular head at fracture site and up to 4 millimeter overlapping. Acromioclavicular joint and glenohumeral joint osteoarthritic changes are seen. No acute scapular fracture. Visualized right upper ribs are grossly intact. Soft tissues: There is no gross full-thickness rotator cuff tendon rupture. Moderate to large amount of glenohumeral joint effusion is seen suggestive of hemarthrosis. Mild to moderate supraspinatus muscle atrophy is seen on sagittal view. No abnormal soft tissue calcifications. IMPRESSION: 1. Finding is consistent with comminuted 4 part fracture of proximal humerus as described above. No dislocation. 2. Minimally displaced and overlapping right distal clavicular shaft fracture as above. Acromioclavicular joint and glenohumeral joint osteoarthritis. 3. Moderate to large hemarthrosis. No abnormal soft tissue calcifications. No gross full-thickness rotator cuff tendon rupture. Dictated by: Steve Mcmillan M.D. on 01/26/2021 at 17:29 Approved by: Steve Mcmillan M.D. on 01/26/2021 at 18:05
== END ==
PROVIDERS: PCP Registered Nurse; Referring Provider Orthopaedic Surgery; Visit Provider Orthopaedic Surgery
DX: S42.241A 4-part fracture of surgical neck of right humerus, initial encounter for closed fracture (principal); S42.021A Displaced fracture of shaft of right clavicle, initial encounter for closed fracture; M19.011 Primary osteoarthritis, right shoulder; M25.011 Hemarthrosis, right shoulder; X58.XXXA Exposure to other specified factors, initial encounter
CPT/HCPCS: 73200

== ENCOUNTER → 2021-05-18 09:25 | Outpatient (CLI) | payer MEDICARE, OTHER, SELFPAY ==
[2021-05-18 11:30] LABS: Alanine Aminotransferase 11 IU/L (<35); Albumin 4.2 g/dL (3.5-5.0); Albumin Globulin Ratio 1.6 (1.0-2.8); Alkaline Phosphatase 58 U/L (38-126); Aspartate Aminotransferase 21 IU/L (14-36); BUN Creatinine Ratio 29.5 (6-22); Bilirubin Total 0.5 mg/dL (0.2-1.3); Blood Urea Nitrogen 23 mg/dL (7-17); Calcium 9.6 mg/dL (8.4-10.2); Carbon Dioxide 28 mmol/L (22-32); Chloride 103 mmol/L (98-107); Estimated Glomerular Filt Rate > 60.0 mL/min (>60); Globulin 2.7 g/dL (1.7-4.1); Glucose 93 mg/dL (80-110); HEMOLYSIS < 15 (0-50); Sodium 137 mmol/L (137-145); Total Protein 6.9 g/dL (6.3-8.2)
[2021-05-18 14:00] LABS: Cholesterol 157 mg/dL (140-199); HDL Cholesterol 80 mg/dL (40-60); LDL Cholesterol Calculated 53 mg/dL (<100); Triglycerides 118 mg/dL (35-150)
== END ==
PROVIDERS: PCP Registered Nurse; Referring Provider Nurse Practitioner; Visit Provider Nurse Practitioner
DX: I10 Essential (primary) hypertension (principal); E78.5 Hyperlipidemia, unspecified
CPT/HCPCS: 36415; 80053; 80061

== ENCOUNTER → 2021-07-22 12:43 | Outpatient (CLI) | payer MEDICARE, OTHER, SELFPAY ==
--- NOTE | 2021-07-22 | DI.MRI.S_ITS ---
PROCEDURE: MR HEAD/BRAIN WO/W CON INDICATIONS: Dysarthria and anarthria TECHNIQUE: Noncontrast axial T1 spin echo, axial T2 fast spin echo, sagittal and axial FLAIR, coronal T2 fast spin echo, axial gradient echo, axial diffusion and ADC through the brain. After the administration of contrast, axial and coronal 3D VIBE or T1 spin echo with fat saturation through the brain. COMPARISON: None. FINDINGS: There is no restricted diffusion to indicate recent ischemia. The major intracranial vascular flow-related signal voids are maintained. There is attenuation of the flow voids in the right cerebellar hemisphere, likely due to vessel atrophy as a function of a large right cerebellar hemispheric infarct which is now represented by encephalomalacia of most of the right cerebellar hemisphere along with gliotic changes. Moderate global cerebral volume loss with advanced severe chronic microvascular ischemic changes. No abnormal intracranial enhancement or susceptibility. Partially empty sella. No gross orbital abnormality. Paranasal sinuses and mastoid air cells are predominantly clear. IMPRESSION: No acute intracranial abnormality. 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 Advanced global cerebral volume loss and chronic microvascular ischemic changes. Dictated by: Adrian Liu M.D. on 07/22/2021 at 14:06 Approved by: Adrian Liu M.D. on 07/22/2021 at 14:10
== END ==
PROVIDERS: PCP Registered Nurse; Referring Provider Internal Medicine; Visit Provider Internal Medicine
DX: R47.1 Dysarthria and anarthria (principal); I63.9 Cerebral infarction, unspecified; G93.89 Other specified disorders of brain; E86.9 Volume depletion, unspecified
CPT/HCPCS: 70553; A9579

== ENCOUNTER → 2021-07-31 12:39 | Outpatient (CLI) | payer MEDICARE, OTHER, SELFPAY ==
[2021-07-31 14:08] LABS: Alanine Aminotransferase 14 IU/L (<35); Albumin 4.5 g/dL (3.5-5.0); Alkaline Phosphatase 54 U/L (38-126); Aspartate Aminotransferase 21 IU/L (14-36); BUN Creatinine Ratio 29.2 (6-22); Bilirubin Total 0.5 mg/dL (0.2-1.3); Blood Urea Nitrogen 21 mg/dL (7-17); Calcium 9.7 mg/dL (8.4-10.2); Carbon Dioxide 28 mmol/L (22-32); Chloride 97 mmol/L (98-107); Cholesterol 173 mg/dL (140-199); Estimated Glomerular Filt Rate > 60.0 mL/min (>60); Globulin 2.2 g/dL (1.7-4.1); Glucose 104 mg/dL (80-110); HDL Cholesterol 91 mg/dL (40-60); HEMOLYSIS < 15 (0-50); LDL Cholesterol Calculated 62 mg/dL (<100); Potassium 3.8 mmol/L (3.4-5.1); Sodium 136 mmol/L (137-145); Total Protein 6.7 g/dL (6.3-8.2); Triglycerides 100 mg/dL (35-150)
== END ==
PROVIDERS: PCP Internal Medicine; Referring Provider Internal Medicine; Visit Provider Internal Medicine
DX: E78.5 Hyperlipidemia, unspecified (principal)
CPT/HCPCS: 36415; 80053; 80061

== ENCOUNTER → 2022-03-01 09:37 | Outpatient (CLI) | payer MEDICARE, OTHER, SELFPAY ==
--- NOTE | 2022-03-01 | DI.MG.S_ITS ---
BILATERAL DIGITAL SCREENING MAMMOGRAM 3D/2D WITH CAD: 03/01/2022 CLINICAL: Routine screening. Comparison is made to exams dated: 12/22/2020 mammogram, 06/13/2019 mammogram, and 01/05/2018 mammogram - [facility]. The tissue of both breasts is heterogeneously dense. This may lower the sensitivity of mammography. Current study was also evaluated with a Computer Aided Detection (CAD) system. There is a biopsy clip in the right breast. No significant masses, calcifications, or other findings are seen in either breast. There has been no significant interval change. IMPRESSION: NEGATIVE There is no mammographic evidence of malignancy. A 1 year screening mammogram is recommended. This exam was interpreted at Station ID: [id number]. NOTE: For mammograms, a report in lay terms will be sent to the patient. Approximately 15% of breast malignancies will not be visualized mammographically. In the management of a palpable breast mass, a negative mammogram must not discourage biopsy of a clinically suspicious lesion. Electronically Signed By: Mathew black/bre:03/01/2022 12:23:00 letter sent: Normal Exam ACR BI-RADS Category 1: Negative [id number]
== END ==
PROVIDERS: PCP Internal Medicine; Referring Provider Internal Medicine; Visit Provider Internal Medicine
DX: Z12.31 Encounter for screening mammogram for malignant neoplasm of breast (principal)
CPT/HCPCS: 77063; 77067

== ENCOUNTER → 2023-06-02 13:39 | Outpatient (CLI) | payer MEDICARE, OTHER, SELFPAY ==
--- NOTE | 2023-06-02 | DI.ECHO.S_ITS ---
[facility]---------[facility] +---------+ : : [address] : : : : [id number] : : : : Phone: [phone]+ Echocardiogram Report + + :Name: NATAN LINARES Study Date: 06/02/2023 Height: 65 in : :[facility] ReadingLocation: Weight: 164 lb : : Gender: Female BSA: 1.8 m2 : :: 1940 Age: 82 yrs BP: 154/85 mmHg: :Reason For Study: Nonrheumatic Aortic Valve Insufficiency : :Ordering Physician: PAT, : :CHRISTIAN Performed By: Amina Jefferson : :Referring: CHRISTIAN STEWART : + + Interpretation Summary BP after exam was 128/75 The left ventricle is normal in size. Normal LV systolic function. The ejection fraction is estimated to be 60-65%. Previous LVEF 55 to 60%. The right ventricle is grossly normal size. The right ventricle is hyperdynamic. There is mild to moderate aortic regurgitation. Compared to the prior echo study, there has been no change in the severity of aortic regurgitation. There is aortic root sclerosis/calcification. The IVC is of normal diameter and collapses greater than 50% with a sniff. This suggests a low right atrial pressure of 3 mm Hg. Mildly enlarged ascending aorta. 4.0 cm in diameter. Previously 4.1 cm. Procedure: A two-dimensional transthoracic echocardiogram with color flow and Doppler was performed. The study quality was technically adequate. Comparison is made with the echocardiogram of 02/28/2020. The patient was in normal sinus rhythm during the exam. Left Ventricle: The left ventricle is normal in size. Proximal septal thickening is noted. There is no echo evidence for significant left ventricular outflow tract obstruction. There is no thrombus. The ejection fraction is estimated to be 60-65%. There are no focal wall motion abnormalities. Diastolic parameters suggest a relaxation abnormality of the left ventricle, consistent with probable normal filling pressures. Right Ventricle: The right ventricle is grossly normal size. The right ventricle is hyperdynamic. Atria: The left atrial size is normal. There has been no significant change since the previous study. Right atrial size is normal. There is no Doppler evidence for an interatrial shunt. Mitral Valve: The mitral valve leaflets are slightly calcified. There is no mitral valve stenosis. There is mild mitral regurgitation. Aortic Valve: The aortic valve is trileaflet. There is mild aortic valve sclerosis. There is no aortic valve stenosis. There is mild to moderate aortic regurgitation. Compared to the prior echo study, there has been no change in the severity of aortic regurgitation. Tricuspid Valve: The tricuspid valve is normal. There is no tricuspid stenosis. There is trace tricuspid regurgitation. The right ventricular systolic pressure is estimated to be at least 24 mmHg based on an estimated right atrial pressure of 3 mm Hg. Pulmonic Valve: The pulmonic valve leaflets are thin and pliable; valve motion is normal. There is no pulmonic valvular stenosis. There is trace pulmonic regurgitation. Great Vessels: The aortic root is normal size. There is aortic root sclerosis/calcification. The ascending aorta is mildly enlarged. There has been no significant change since the previous study. The pulmonary artery is normal size. The IVC is of normal diameter and collapses greater than 50% with a sniff. This suggests a low right atrial pressure of 3 mm Hg. Pericardium/ Pleura There is no pericardial effusion. There is no pleural effusion. MMode/2D Measurements & Calculations LVIDd: 3.9 cm LVOT diam: 2.0 cm LVIDs: 2.9 cm Ao root diam: 3.2 cm FS: 25.6 % asc Aorta Diam: 4.0 cm EPSS: 0.60 cm IVSd: 1.5 cm LVPWd: 0.90 cm LV ansari. diameter/BSA (cm/m^2): 2.1 LV sys. diameter/BSA (cm/m^2): 1.6 LA A2 area: 15.6 cm2 RA long axis: 4.5 cm LA A4 area: 9.0 cm2 RA area: 11.7 cm2 LA length (vol): 5.3 cm RA vol: 25.7 ml LA vol: 22.3 ml RA : 14.1 ml/m2 LA vol index: 12.2 ml/m2 RVD1 (basal): 3.5 cm LVLs ap4: 6.0 cm LVLd ap2: 7.0 cm TAPSE_phl: 2.2 cm LVLs ap2: 5.4 cm Doppler Measurements & Calculations Ao V2 max: 156.5 cm/sec LVOT Max Nikolai: 152.7 cm/sec Ao V2 mean: 107.0 cm/sec LV V1 max P.3 mmHg Ao max P.0 mmHg LV V1 VTI: 26.4 cm Ao mean P.3 mmHg NELLY(I,D): 2.8 cm2 Ao V2 VTI: 29.6 cm NELLY(V,D): 3.1 cm2 sev ratio: 0.89 NELLY indexed to BSA (cm^2/m^2): 1.5 MV E max nikolai: 69.0 cm/sec TR max nikolai: 228.0 cm/sec MV A max nikolai: 110.0 cm/sec TR max P.8 mmHg MV E/A: 0.63 PA V2 max: 131.0 cm/sec MV dec time: 0.26 sec PA V2 mean: 90.3 cm/sec PA mean P.0 mmHg PA pr(Accel): 36.3 mmHg SV(LVOT): 82.9 ml AV VR_phl: 0.97 NELLY(VTI)/BSA_phl: 1.5 Reading Physician:05:38 PM
== END ==
PROVIDERS: Referring Provider Internal Medicine Cardiovascular Disease; Visit Provider Internal Medicine Cardiovascular Disease
DX: I08.0 Rheumatic disorders of both mitral and aortic valves (principal); I77.810 Thoracic aortic ectasia; I77.89 Other specified disorders of arteries and arterioles
CPT/HCPCS: 93306

== ENCOUNTER 2024-05-17 10:35 | Emergency (ER) | payer MEDICARE, OTHER, SELFPAY ==
[2024-05-17] VITALS (11 sets, daily range): BP systolic 140–188; BP diastolic 64–100; PULSE 60–81; RESP 13–35; TEMP 36.6; O2SAT 94–97; BMI 26.6
--- NOTE | 2024-05-17 11:02 | DI.RAD.S_ITS ---
PROCEDURE: XR CHEST 1V INDICATIONS: chest pain TECHNIQUE: One view of the chest was acquired. COMPARISON: [facility], CR, XR SHOULDER 2+ VIEWS RIGHT, 03/16/2023, 9:12. [facility], CR, CHEST 1 VIEW, 06/13/2015, 13:37. FINDINGS: Surgical changes and devices: None. Lungs and pleura: Lungs are clear. No pleural effusions or pneumothorax. Mediastinum: Mediastinal contours appear normal. Heart size is enlarged. Bones and chest wall: No suspicious bony lesions. Overlying soft tissues appear unremarkable. Old humeral head/neck fracture on the right. IMPRESSION: No acute pulmonary process. Dictated by: Jackie William M.D. on 05/17/2024 at 11:52 Approved by: Jackie William M.D. on 05/17/2024 at 11:53
[2024-05-17 11:09] LABS: Add Manual Diff / Slide Review NO; Basophils Absolute Auto 0 /uL (0-100); Basophils Percent Auto 0.7 % (0-2); Eosinophils Absolute Auto 100 /uL (0-450); Eosinophils Percent Auto 1.7 % (2-4); Hematocrit 38.6 % (36-46); Hemoglobin 12.9 g/dL (12.0-16.0); Lymphocytes Absolute Auto 2100 /uL (1100-4500); Mean Corpuscular HGB Conc 33.3 % (30-36); Mean Corpuscular Hemoglobin 31.4 PG (26-34); Mean Corpuscular Volume 94.2 fL (80-100); Monocytes Absolute Auto 400 /uL (0-900); Monocytes Percent Auto 5.8 % (3-14); Neutrophils Absolute Auto 4300 /uL (1500-7000); Neutrophils Percent Auto 61.8 % (50-75); Platelet Count 242 X10^3/uL (150-400); Prothrombin Time 11.6 SECONDS (9.4-12.5); Red Cell Distribution Width 13.9 % (11.6-14.8); White Blood Cell Count 6.9 X10^3/uL (4.5-11.0)
--- NOTE | 2024-05-17 11:11 | EKG_ITS ---
[address] [address] Test Date: 2024-05-17 Pat Name: Macrina Haney Department: Room: Gender: Female Gambling Dealer: JACINTO : 1940 Requested By: Order Number: [id number] Reading MD: Beltran Emery Measurements Intervals [place] Rate: 65 P: 16 MN: 216 QRS: -47 QRSD: 90 T: 16 QT: 396 QTc: 411 Interpretive Statements Sinus rhythm with 1st degree AV block Left anterior fascicular block Moderate voltage criteria for LVH, may be normal variant ( R in aVL , [place] product ) Electronically Signed On 05-19-2024 18:25:49 PDT by Beltran Emery
[2024-05-17 11:12] LABS: PTT Partial Thromboplastin Tim 33 SECONDS (25.1-36.5)
[2024-05-17] MEDS: ASPIRIN 81 MG CHEW TAB 324 MG PO (11:19)
[2024-05-17 11:21] LABS: Alanine Aminotransferase 17 IU/L (<35); Albumin 4.3 g/dL (3.5-5.0); Albumin Globulin Ratio 1.8 (1.0-2.8); Alkaline Phosphatase 54 U/L (38-126); Aspartate Aminotransferase 23 IU/L (14-36); BUN Creatinine Ratio 23.5 (6-22); Bilirubin Total 0.5 mg/dL (0.2-1.3); Blood Urea Nitrogen 16 mg/dL (7-17); Calcium 9.8 mg/dL (8.4-10.2); Carbon Dioxide 28 mmol/L (22-32); Chloride 104 mmol/L (98-107); Creatine Kinase 39 U/L (30-135); Estimated Glomerular Filt Rate > 60 mL/min (>60); Globulin 2.4 g/dL (1.7-4.1); Glucose 95 mg/dL (80-110); HEMOLYSIS 16 (0-50); Lipase 59 U/L (23-300); Magnesium 2.1 mg/dL (1.6-2.3); Potassium 3.9 mmol/L (3.4-5.1); Sodium 138 mmol/L (137-145); Total Protein 6.7 g/dL (6.3-8.2)
[2024-05-17 11:32] LABS: NT-proBNP (BNP-Adult 18+) 350 pg/mL (<450); Troponin I < 0.012 ng/mL (0.01-0.034)
--- NOTE | 2024-05-17 11:35 | PC.NURSE ---
Pt states she was at the gym this morning around 1000 which she does multiple times a week. Started having substernal CP without radiation which stopped when she rested. Also states that she has been having palpitations for weeks around 1500 daily while resting. Cannot see Paliwal until Jun. H/o AVM 20 years ago with speech memory and R arm deficits. Given 324mg ASA at triage. Denies NVD, GI upset, Urinary issues, SOB while having pain and denies pain at this time.
--- NOTE | 2024-05-17 11:55 | ED_ITS ---
HPI - Chest Pain General Chief Complaint: Chest Pain Stated Complaint: heart issues Time Seen by Provider: 05/17/24 11:55 Source: patient, RN notes reviewed and old records reviewed Mode of arrival: Ambulatory Limitations: no limitations History of Present Illness HPI narrative: 80-year-old female with history of AVM, dyslipidemia, hypertension, GIOVANNI, aortic valve regurgitation after medic fever as a child who presents with complaint of chest pain after being on the recumbent bicycle l at a local gym. Patient states that she she had symptoms resolve after 1-2 minutes. She states it occurred again when she was using her walker to walk. It did not occur since then she has been able to ambulate to the bathroom in the department and states it is resolved. She has not had similar symptoms in the past. Describes as sort of left-sided lower chest, no radiation, no shortness of breath no diaphoresis no nausea or vomiting no lightheadedness or passing out. No new swelling of extremities, states she is some mild chronic swelling but no changes. She notes she has palpitations everyday at about 1500 while she seated for several hours. She states she did not have any palpitations today. She states she does follow with Cardiology, Dr. Hercules while because she has a history of rheumatic fever had multiple episodes growing up as a child developed a murmur has known aortic regurg that was moderate. Also had an AVM that blood in 2002 and did not have deficits of her right lower extremity but has tremor if touched or moved regularly so she does not use her right side extremities typically. Patient states she is on Tylenol, atorvastatin, verapamil for her home medications. No reported drug allergies. Patient is accompanied by her family. Related Data Home Medications Medication Instructions Recorded Confirmed FOLIC ACID/VIT A/VIT B1/VIT 1 tab PO Q DAY ##0 04/14/11 08/25/22 (#MULTIVITAMIN) [CO-Q-10] 1 cap PO QDAY ##0 03/01/13 08/25/22 [GLUCOSAMINE/CHONDROI] 1 cap PO QDAY ##0 03/01/13 08/25/22 [FISH OIL] 1 cap PO QDAY ##0 01/24/17 08/25/22 [MAGNESIUM] 1 tab PO QDAY ##0 01/24/17 08/25/22 Potassium See Rx Instructions .Route .COMPLEX 06/06/18 08/25/22 Respironics Dreamstation CPAP #1 ea 05/29/19 08/25/22 advancin PO inflammatory supplement 06/09/20 08/25/22 ascorbic acid (vitamin C) 1,000 mg 1 gram PO DAILY 06/09/20 08/25/22 tablet cholecalciferol (vitamin D3) 50 50 mcg PO DAILY 06/09/20 08/25/22 mcg (2,000 unit) capsule (Vitamin D3) niacin 500 mg capsule,extended 500 mg PO DAILY 06/09/20 08/25/22 release tumeric PO 06/09/20 08/25/22 Previous Rx's Medication Instructions Recorded Disabled Parking Placard #1 ea 02/07/19 famotidine 20 mg tablet 20 mg PO BID PRN reflux #180 tabs 06/09/20 hydrochlorothiazide 25 mg tablet 25 mg PO QDAY #90 tabs 06/09/20 verapamil 80 mg tablet 160 mg (2 x 80 mg) PO BID #360 tabs 06/09/20 sulindac 200 mg tablet See Rx Instructions .Route 12/19/20 .COMPLEX #180 tabs hydrocodone 5 mg-acetaminophen 325 1 tab PO Q6H PRN pain #10 tabs 01/21/21 mg tablet benzonatate 100 mg capsule 100 mg PO BID PRN cough #20 caps 01/06/22 atorvastatin 40 mg tablet See Rx Instructions .Route 06/24/22 .COMPLEX #90 tabs ketoconazole 2 % topical cream 1 applic topical BID Intertrigo 03/19/24 #30 grams Allergies Allergy/AdvReac Type Severity Reaction Status Date / Time No Known Drug Allergies Allergy Verified 03/19/24 16:37 Review of Systems Review of Systems ROS Unobtainable: All systems reviewed & are unremarkable except as noted in HPI and below Patient History Medical History Insomnia, psychophysiological manager report associated with adverse incidents (~03/30/21) Aortic regurgitation Rheumatic fever Sleep apnea Brain bleed (~2001) Hyperlipemia Hypertension Stroke Surgical History Hx of brain surgery (~2002) History of tonsillectomy Status post breast biopsy History of carpal tunnel repair Family History Father No problems noted. Mother No problems noted. Grandmother No problems noted. Grandfather No problems noted. Social History Smoking Status: Never smoker second hand exposure: No alcohol intake: current substance use type: does not use Smoking Status: Never smoker alcohol intake frequency: holidays/special occasions only Substance Use Type: does not use Exam Narrative Exam Narrative: GENERAL: Alert and oriented x three, elderly female in mild distress HEENT: Head normocephalic, atraumatic, EOMI, pupils reactive, face symmetric, moist mucous membranes NECK: Supple, full range of motion CARDIOVASCULAR: Regular rate and rhythm without murmurs, rubs or gallops. No JVD, trace edema bilateral lower extremities. No reproducible chest pain on palpitation. RESPIRATORY: Breath sounds equal bilaterally, no wheezes rales or rhonchi. No tachypnea or accessory muscle use. ABDOMEN: Soft, nontender. Normoactive bowel sounds all 4 quadrants. No guarding or rebound, rigidity, no mass : No CVA tenderness EXTREMITIES: Normal range of motion, no clubbing or edema. Neurovascularly intact NEUROLOGICAL: Cranial nerves II through XII grossly intact. Moving all extremities SKIN: Warm, dry, no petechiae, no rashes or lesions. Initial Vital Signs Initial Vital Signs: Vital Signs Temperature 97.8 F 05/17/24 10:55 Pulse Rate 81 05/17/24 10:55 Respiratory Rate 26 H 05/17/24 10:55 Blood Pressure 154/85 H 05/17/24 10:55 Pulse Oximetry 97 05/17/24 10:55 Oxygen Delivery Method Room Air 05/17/24 10:55 Course Orders Ordered: ED Orders 05/17/24 10:50 Complete Blood Count AUTO DIFF Stat Comprehensive Metabolic Panel Stat Lipase Stat Magnesium Stat NT-proBNP (BNP-Adult 18+) Stat PTT Partial Thromboplastin Jake Stat Prothrombin Time INR Stat Troponin & CK Cardiac Panel Stat 05/17/24 11:02 XR chest 1V Stat EKG-12 Lead Stat 05/17/24 11:45 Urine Culture Stat Urine Microscopic Stat 05/17/24 12:51 EKG-12 Lead Stat 05/17/24 13:00 Trop I [Troponin I] Stat Discontinued Medications Aspirin (Aspirin 81 Mg Chew Tab) 324 mg PO NOW ONE Stop: 05/17/24 11:03 Last Admin: 05/17/24 11:19 Dose: 324 mg Documented By: CTS Vital Signs Vital signs: Vital Signs - 8 hr 05/17/24 10:55 05/17/24 11:34 05/17/24 11:35 Temperature 97.8 F Pulse Rate 81 60 62 Respiratory Rate 26 H 16 13 Blood Pressure 154/85 H 140/64 Pulse Oximetry 97 94 95 Oxygen Delivery Method Room Air Room Air 05/17/24 12:53 05/17/24 13:00 05/17/24 13:30 Temperature Pulse Rate 75 63 63 Respiratory Rate 25 H 35 H 28 H Blood Pressure Pulse Oximetry 95 94 Oxygen Delivery Method 05/17/24 14:00 05/17/24 14:02 05/17/24 14:02 Temperature Pulse Rate 64 65 Respiratory Rate 18 24 Blood Pressure 174/90 H Pulse Oximetry 95 97 Oxygen Delivery Method 05/17/24 14:30 05/17/24 14:30 05/17/24 14:32 Temperature Pulse Rate 67 72 Respiratory Rate 26 H 34 H Blood Pressure 188/100 H Pulse Oximetry 95 97 Oxygen Delivery Method Room Air 05/17/24 15:01 Temperature Pulse Rate Respiratory Rate Blood Pressure 149/77 H Pulse Oximetry Oxygen Delivery Method MDM - Chest Pain Lab Data 05/17/24 10:50 05/17/24 10:50 Labs: Lab Results 05/17/24 05/17/24 05/17/24 Range/Units 10:50 11:45 13:00 WBC 6.9 (4.5-11.0) X10^3/uL RBC 4.10 (4.0-5.2) X10^6/uL Hgb 12.9 (12.0-16.0) g/dL Hct 38.6 (36-46) % MCV 94.2 (80-100) fL MCH 31.4 (26-34) PG MCHC 33.3 (30-36) % RDW 13.9 (11.6-14.8) % Plt Count 242 (150-400) X10^3/uL Neut % (Auto) 61.8 (50-75) % Lymph % (Auto) 30.0 (25-40) % [place] % (Auto) 5.8 (3-14) % Eos % (Auto) 1.7 L (2-4) % Baso % (Auto) 0.7 (0-2) % Neut # (Auto) 4300 (5672-4191) /uL Lymph # (Auto) 2100 (4612-2347) /uL [place] # (Auto) 400 (0-900) /uL Eos # (Auto) 100 (0-450) /uL Baso # (Auto) 0 (0-100) /uL PT 11.6 (9.4-12.5) SECONDS INR 1.0 (0.9-1.3) APTT 33 (25.1-36.5) SECONDS Sodium 138 (137-145) mmol/L Potassium 3.9 (3.4-5.1) mmol/L Chloride 104 (98-107) mmol/L Carbon Dioxide 28 (22-32) mmol/L BUN 16 (7-17) mg/dL Creatinine 0.68 (0.52-1.04) mg/dL Estimated GFR > 60 (>60) mL/min BUN/Creatinine Ratio 23.5 H (6-22) Glucose 95 (80-110) mg/dL Calcium 9.8 (8.4-10.2) mg/dL Magnesium 2.1 (1.6-2.3) mg/dL Total Bilirubin 0.5 (0.2-1.3) mg/dL AST 23 (14-36) IU/L ALT 17 (<35) IU/L Alkaline Phosphatase 54 (38-126) U/L Total Creatine Kinase 39 (30-135) U/L Troponin I < 0.012 < 0.012 (0.01-0.034) ng/mL NT-Pro-B Natriuret Pep 350 (<450) pg/mL Total Protein 6.7 (6.3-8.2) g/dL Albumin 4.3 (3.5-5.0) g/dL Globulin 2.4 (1.7-4.1) g/dL Albumin/Globulin Ratio 1.8 (1.0-2.8) Lipase 59 (23-300) U/L Urine RBC 1-5/hpf (0-5/HPF) Urine WBC 10-30/hpf H (0-5/HPF) Ur Squamous Epith Cells 0-1 /hpf (0-5/HPF) Urine Bacteria Moderate (10-30) H (None) Ur Culture Indicated? Specimen cultured Vol Urine Centrifuged 10ml (spun) Urine Dip Bedside Urine Glucose Negative Bedside Urine Bilirubin - Negative Bedside Urine Ketone - Negative Urine Specific [place] 1.010 Bedside Urine Occult Blood - Negative Bedside Urine pH 7.0 Bedside Urine Protein - Negative Bedside Urine Urobilinogen - Negative Bedside Urine Nitrite - Negative Bedside Urine Leukocytes +/- 15 Esterase Imaging Data Chest x-ray: Radiologist's Impression: Macrina Haney??83??F??1940 ? Allergy/Adv: No Known Drug Allergies Close Chest X-Ray (Signed) Jackie William - 05/17/24 Echocardiogram Ultrasound (Signed) Hardeep Vasquez - 06/02/23 Mammogram Screening (Signed) Mathew Em - 03/01/22 Brain MRI (Signed) Adrian Liu - 07/22/[address] (Signed) Steve Mcmillan - 01/26/21 Shoulder X-Ray (Signed) Jade Irving - 01/21/21 Lumbar Spine X-Ray (Signed) Mesfin Aldrich - 12/29/20 Mammogram Screening (Signed) Mathew Em - 12/22/20 DEXA Result 09/29/20 Bone Densitometry 09/29/20 Echocardiogram Ultrasound (Signed) Ernst Mccurdy - 02/28/20 Mammogram Screening (Signed) Bruce De Paz - 06/13/19 Echocardiogram Ultrasound (Signed) Ernst Mccurdy - 06/13/19 Echocardiogram Ultrasound (Signed) Hardeep Vasquez - 04/24/18 [place] [address] XRay Report Signed Patient: Macrina Haney MR#: [id number] : 1940 Acct:[id number] Age/Sex: 83 / F Date of Service: 05/17/24 Loc: ED Accession Number: [id number] Procedure: XR chest 1V Ordering Provider: Lucy Mercado D.O. PROCEDURE: XR CHEST 1V INDICATIONS: chest pain TECHNIQUE: One view of the chest was acquired. COMPARISON: [facility], XR SHOULDER 2+ VIEWS RIGHT, 03/16/2023, 9:12. [facility], CR, CHEST 1 VIEW, 06/13/2015, 13:37. FINDINGS: Surgical changes and devices: None. Lungs and pleura: Lungs are clear. No pleural effusions or pneumothorax. Mediastinum: Mediastinal contours appear normal. Heart size is enlarged. Bones and chest wall: No suspicious bony lesions. Overlying soft tissues appear unremarkable. Old humeral head/neck fracture on the right. IMPRESSION: No acute pulmonary process. Dictated by: Jackie William M.D. on 05/17/2024 at 11:52 Approved by: Jackie William M.D. on 05/17/2024 at 11:53 ECG Data Attestation: I personally reviewed and interpreted this ECG as follows: Prior ECG tracings: not available for review Interpretation: Sinus rhythm first-degree AV block, left anterior fascicular block, rate of 65 VT 216 QRS of 90 QTC 411, no acute ST changes noted. Patient has prior from 06/13/2015 has nonspecific change in V1 V2. Sinus rhythm first-degree AV block, left anterior fascicular block rate of 62 VT 218 QRS 88 QTC 414, no acute ST changes appreciated. Nonspecific change. MDM Narrative Medical decision making narrative: 83-year-old female who had chest pain after using a recumbent bike, patient had recurrent episode while ambulating and none since. She has not ambulated several times. Discussed troponins negative and on repeat it is still negative no acute EKG changes appreciated. Discussed risks versus benefits plan for discharge home patient had an episode where she was hypertensive in the department but improved during her stay. She is continued to be asymptomatic and ambulating without issue in the department. White blood cells 6.9 hemoglobin is 12.9 platelets are 242, INR is 1 sodium is 138 potassium 3.9 chloride 104 CO2 is 28 with a BUN 16 creatinine 0.68, glucose of 95 LFTs are negative troponins less than 0.012 BNP is 350. Troponins repeated EKG shows sinus rhythm first-degree AV block left anterior fascicular block patient has prior from 06/13/2015 overall appears similar although there is some nonspecific change in V1 V2. Chest x-ray shows no acute change. Poc urine is positive for leuks Patient had echo on 06/02/2023 with normal left ventricle EF of 55-60% and normal right ventricle size but hyperdynamic with [id number] aortic regurg no change in severity from priors, aortic root sclerosis and calcification mildly enlarging ascending aorta 4 cm in diameter previously 4.1 cm. Discharge Plan Departure Patient Disposition: Home Clinical Impression: Chest pain Instructions: DI for Chest Pain Activity Restrictions/Additional Instructions: Please follow up with your physician for recheck and or your personal development mentor. Please call to see if they can move your appointment up. Please continue to monitor your blood pressure. Continue your home medications as prescribed. Please return for recurrent chest pain, shortness of breath, diaphoresis or sweatiness, nausea or vomiting, new swelling in your extremities, lightheadedness or passing out or other new or concerning changes. Prescriptions: No Action Potassium See Rx Instructions .ROUTE .COMPLEX Patient Comments: 2 capsules PO BID Rx Instructions: 2 capsules PO BID ketoconazole 2 % cream 1 applic topical BID Qty: 30 0RF benzonatate 100 mg capsule 100 mg PO BID PRN (Reason: cough) Qty: 20 0RF FOLIC ACID/VIT A/VIT B1/VIT (#MULTIVITAMIN) 1 tab PO Q DAY Qty: 0 [CO-Q-10] 1 cap PO QDAY Qty: 0 [GLUCOSAMINE/CHONDROI] 1 cap PO QDAY Qty: 0 [MAGNESIUM] 1 tab PO QDAY Qty: 0 [FISH OIL] 1 cap PO QDAY Qty: 0 (DME) Disabled Parking Placard Qty: 1 0RF Dose Instruction: As directed Rx Instructions: Patient qualifies for Disabled Parking Placard (DME) Respironics Dreamstation CPAP Qty: 1 Dose Instruction: As directed Patient Comments: Pressure: 8-12 cmH2O DME: [employer] Rx Instructions: As directed sulindac 200 mg tablet See Rx Instructions .ROUTE .COMPLEX Qty: 180 1RF Dose Instruction: TAKE 1 TABLET BY MOUTH TWICE DAILY Rx Instructions: TAKE 1 TABLET BY MOUTH TWICE DAILY atorvastatin 40 mg tablet See Rx Instructions .ROUTE .COMPLEX Qty: 90 0RF Dose Instruction: TAKE 1 TABLET BY MOUTH AT BEDTIME Rx Instructions: TAKE 1 TABLET BY MOUTH AT BEDTIME tumeric 1,000 mg PO advancin PO cholecalciferol (vitamin D3) [Vitamin D3] 50 mcg (2,000 unit) capsule 50 mcg PO DAILY niacin 500 mg capsule, extended release 500 mg PO DAILY ascorbic acid (vitamin C) 1,000 mg tablet 1 gram PO DAILY hydrochlorothiazide 25 mg tablet 25 mg PO QDAY Qty: 90 3RF verapamil 80 mg tablet 160 mg PO BID Qty: 360 3RF famotidine 20 mg tablet 20 mg PO BID PRN (Reason: reflux) Qty: 180 3RF Rx Instructions: Take one tablet twice daily as needed for reflux/heartburn hydrocodone-acetaminophen 5-325 mg tablet 1 tab PO Q6H PRN (Reason: pain) Qty: 10 0RF Referrals: Miscellaneous,MD Domi [Primary Care Provider] - Hardeep Vasquez MD [Physician] - Stand Alone Forms: Patient Portal/API
[2024-05-17 12:43] LABS: Bacteria Urine Moderate (10-30); Culture Indicated Urine Specimen Cultured; RBC Urine 1-5/HPF (0-5/HPF); Squamous Epithelial Cell Urine 0-1 /HPF (0-5/HPF); Urine Volume 10mL (spun); WBC Urine 10-30/HPF (0-5/HPF)
--- NOTE | 2024-05-17 13:03 | EKG_ITS ---
[address] [address] Test Date: 2024-05-17 Pat Name: Macrina Haney Department: [facility] Room: Gender: Female Jailkeeper: AMMON : 1940 Requested By: Order Number: [id number] Reading MD: Beltran Emery Measurements Intervals [place] Rate: 62 P: 30 MT: 218 QRS: -45 QRSD: 88 T: 9 QT: 408 QTc: 414 Interpretive Statements Sinus rhythm with 1st degree AV block Left anterior fascicular block Moderate voltage criteria for LVH, may be normal variant ( R in aVL , [place] product ) Electronically Signed On 05-19-2024 18:26:33 PDT by Beltran Emery
[2024-05-17 13:53] LABS: Troponin I < 0.012 ng/mL (0.01-0.034)
== END 2024-05-17 15:04 | disposition home or self-care (01) ==
PROVIDERS: Emergency Provider Emergency Medicine
DX: R07.9 Chest pain, unspecified (principal); I44.0 Atrioventricular block, first degree; I44.7 Left bundle-branch block, unspecified
CPT/HCPCS: 36415; 71045; 80053; 81003; 81015; 82550; 83690; 83735; 83880; 84484; 85025; 85610; 85730; 87077; 87086; 87186; 93005; 99284

== ENCOUNTER → 2024-06-28 07:58 | Outpatient (CLI) | payer MEDICARE, OTHER, SELFPAY ==
--- NOTE | 2024-06-28 08:01 | DI.ECHO.S_ITS ---
[facility]---------+ [facility] : : [address] : : [place] : : [id number] : : Phone: [phone] Echocardiogram Report + + :Name: NATAN LINARES Study Date: 06/28/2024 Height: 65 in : :Hospital ReadingLocation: Weight: 169 lb : : Gender: Female BSA: 1.8 m2 : :: 1940 Age: 83 yrs BP: 134/82 mmHg: :Reason For Study: AORTIC VALVE INSUFFICIENCY : :Ordering Physician: SIRENA, : :ROBBIE Shin Performed By: June Stallworth : :Referring: ROBBIE PACK W : + + Interpretation Summary The left ventricle is normal in size. The left ventricular ejection fraction is normal. The ejection fraction is estimated to be 60-65%. There has been no significant change in LVEF since the previous exam. The right ventricle is grossly normal size. The right ventricle is hyperdynamic. No significant change. The aortic valve is mildly calcified. There is mildly reduced leaflet mobility. There is no hemodynamically significant valvular aortic stenosis. There is mild to moderate aortic regurgitation. Compared to the prior echo study, there has been no change in the severity of aortic regurgitation. There is mild tricuspid regurgitation. The right ventricular systolic pressure is estimated to be at least 23 mmHg based on an estimated right atrial pressure of 3 mm Hg. The ascending aorta is moderately enlarged. 4.4 cm around mid ascending aorta level. Previously in the range of 4 -4.3. There is aortic root sclerosis/calcification. Mild atherosclerotic plaque(s) in the aortic arch. Procedure: A two-dimensional transthoracic echocardiogram with color flow and Doppler was performed. The study quality was technically adequate. Comparison is made with the echocardiogram of 06/02/2023. The patient was in sinus rhythm with heart rates between 62-74 bpm during the exam. Left Ventricle: The left ventricle is normal in size. Proximal septal thickening is noted. There is no thrombus. The ejection fraction is estimated to be 60-65%. The left ventricular ejection fraction is normal. There has been no significant change since the previous exam. There are no focal wall motion abnormalities. MV E/A: 0.69 Med Peak E' Nikolai: 4.0 cm/sec E/E' med: 19.4. Right Ventricle: The right ventricle is grossly normal size. The right ventricle is hyperdynamic. There has been no significant change since the previous exam. Atria: The left atrial size is normal. Right atrial size is normal. There is no Doppler evidence for an interatrial shunt. Mitral Valve: The mitral valve leaflets are slightly calcified. There is mild mitral regurgitation. Compared to the prior echo study, there has been no change in the severity of mitral regurgitation. Aortic Valve: The aortic valve is trileaflet. The aortic valve is mildly calcified. There is mild aortic valve sclerosis. There is mildly reduced leaflet mobility. There is no hemodynamically significant valvular aortic stenosis. There is mild to moderate aortic regurgitation. Compared to the prior echo study, there has been no change in the severity of aortic regurgitation. Tricuspid Valve: The tricuspid valve is normal. There is mild tricuspid regurgitation. The right ventricular systolic pressure is estimated to be at least 23 mmHg based on an estimated right atrial pressure of 3 mm Hg. Pulmonic Valve: The pulmonic valve leaflets are thin and pliable; valve motion is normal. There is mild pulmonic regurgitation. Great Vessels: The aortic root is normal size. There is aortic root sclerosis/calcification. The ascending aorta is moderately enlarged. Mild atherosclerotic plaque(s) in the aortic arch. The IVC is of normal diameter and collapses greater than 50% with a sniff. This suggests a low right atrial pressure of 3 mm Hg. Pericardium/ Pleura There is no pericardial effusion. There is no pleural effusion. MMode/2D Measurements & Calculations LVIDd: 5.0 cm LVOT diam: 2.1 cm LVIDs: 3.2 cm Ao root diam: 3.2 cm FS: 36.6 % asc Aorta Diam: 4.4 cm EPSS: 0.80 cm Ao Arch Diam (Prox Trans): 2.7 cm IVSd: 0.93 cm LVPWd: 1.0 cm LV ansari. diameter/BSA (cm/m^2): 2.7 LV sys. diameter/BSA (cm/m^2): 1.7 LA A2 area: 19.6 cm2 RA long axis: 4.8 cm LA A4 area: 16.4 cm2 RA area: 14.4 cm2 LA length (vol): 4.8 cm RA vol: 37.1 ml LA vol: 57.1 ml RA : 20.1 ml/m2 LA vol index: 31.0 ml/m2 IVC diam: 1.1 cm RVD1 (basal): 3.4 cm TAPSE: 1.8 cm Doppler Measurements & Calculations Ao V2 max: 158.4 cm/sec LVOT Max Nikolai: 108.3 cm/sec Ao V2 mean: 115.9 cm/sec LV V1 max P.7 mmHg Ao max P.0 mmHg LV V1 VTI: 23.8 cm Ao mean P.9 mmHg NELLY(I,D): 2.8 cm2 Ao V2 VTI: 30.0 cm NELLY(V,D): 2.4 cm2 sev ratio: 0.79 NELLY indexed to BSA (cm^2/m^2): 1.5 AI P1/2t: 558.6 msec AI dec slope: 210.7 cm/sec2 MV E max nikolai: 78.5 cm/sec TR max nikolai: 221.4 cm/sec MV A max nikolai: 114.2 cm/sec TR max P.6 mmHg MV E/A: 0.69 PA V2 max: 106.9 cm/sec Med Peak E' Nikolai: 4.0 cm/sec PA V2 mean: 71.2 cm/sec E/E' med: 19.4 PA mean P.3 mmHg Lat Peak E' Nikolai: 4.7 cm/sec PA pr(Accel): 32.8 mmHg E/E' lat: 16.8 E/e' average: 18.1 MV dec time: 0.27 sec SV(LVOT): 84.8 ml Reading Physician:11:10 AM
== END ==
LOC: ECHO 07:59
PROVIDERS: PCP Internal Medicine; Referring Provider Nurse Practitioner; Visit Provider Nurse Practitioner
DX: I08.3 Combined rheumatic disorders of mitral, aortic and tricuspid valves (principal); I77.89 Other specified disorders of arteries and arterioles; I70.0 Atherosclerosis of aorta
CPT/HCPCS: 93306

== ENCOUNTER → 2024-07-24 16:10 | Outpatient (CLI) | payer MEDICARE, OTHER, SELFPAY ==
[2024-07-24 17:58] LABS: Magnesium 1.9 mg/dL (1.6-2.3)
== END ==
PROVIDERS: PCP Internal Medicine; Referring Provider Internal Medicine Cardiovascular Disease; Visit Provider Internal Medicine Cardiovascular Disease
DX: I10 Essential (primary) hypertension (principal)
CPT/HCPCS: 36415; 83735

== ENCOUNTER → 2025-03-21 08:57 | Outpatient (CLI) | payer MEDICARE, OTHER, SELFPAY ==
[2025-03-21 11:15] LABS: Hematocrit 39.3 % (36-46); Hemoglobin 13.1 g/dL (12.0-16.0); Mean Corpuscular HGB Conc 33.2 % (30-36); Mean Corpuscular Hemoglobin 31.1 PG (26-34); Mean Corpuscular Volume 93.5 fL (80-100); Platelet Count 228 X10^3/uL (150-400); Red Cell Distribution Width 13.3 % (11.6-14.8)
[2025-03-21 11:38] LABS: Alanine Aminotransferase 21 IU/L (<35); Albumin 4.5 g/dL (3.5-5.0); Alkaline Phosphatase 63 U/L (38-126); Aspartate Aminotransferase 29 IU/L (14-36); BUN Creatinine Ratio 29.3 (6-22); Bilirubin Total 0.9 mg/dL (0.2-1.3); Blood Urea Nitrogen 22 mg/dL (7-17); Calcium 9.8 mg/dL (8.4-10.2); Carbon Dioxide 26 mmol/L (22-32); Chloride 104 mmol/L (98-107); Cholesterol 186 mg/dL (140-199); Estimated Glomerular Filt Rate > 60 mL/min (>60); Globulin 2.2 g/dL (1.7-4.1); Glucose 97 mg/dL (70-99); HDL Cholesterol 92 mg/dL (40-60); HEMOLYSIS < 15 (0-50); LDL Cholesterol Calculated 71 mg/dL (<100); Potassium 4.3 mmol/L (3.4-5.1); Sodium 138 mmol/L (137-145); Total Protein 6.7 g/dL (6.3-8.2); Triglycerides 113 mg/dL (35-150)
[2025-03-21 11:56] LABS: Vitamin D 25 Hydroxy (D3) 46.7 ng/mL (30.0-100.0)
== END ==
PROVIDERS: Nurse Practitioner; PCP Internal Medicine; Referring Provider Internal Medicine Cardiovascular Disease; Visit Provider Internal Medicine Cardiovascular Disease
DX: E55.9 Vitamin D deficiency, unspecified (principal); E78.5 Hyperlipidemia, unspecified; I10 Essential (primary) hypertension
CPT/HCPCS: 36415; 80053; 80061; 82306; 85027